=== PATIENT | female | born 1940 | race Caucasian/White ===

== ENCOUNTER → 2016-09-18 | Outpatient (CLI) | payer MEDICARE, BC ==
[~2016-09-18] MED LIST: ADVAIR 500/28 DISKU1 IH; AMBIEN5 M1 PO; BROVANA15 MCG/2 M IH; CLARITIN10 M1 PO; CLONAZEPAM0.25 MG PO; DIOVAN HCT 25 M1 TA1 PO; FISH OIL1 IU PO; GOOD NEIGHBOR325 MG PO; LIPITOR 40MG TA40 MG PO; LOPRESSOR100 M1 PO; MACROBID 100 M100 MG PO; METHYLDOPA500 M1 PO; NITROSTAT0.4 M1 SL; POTASSIUM CHLO10 ME5 PO; PULMICORT0.5 MG/2 M IH; SYNTHROID112 MCG PO
== END ==
LOC: RAD 08:09
DX: Z13.820 Encounter for screening for osteoporosis (principal); M85.80 Other specified disorders of bone density and structure, unspecified site

== ENCOUNTER → 2016-09-18 | Outpatient (CLI) | payer MEDICARE, BC | LOC: MAMMO 08:11 | DX: Z12.31 Encounter for screening mammogram for malignant neoplasm of breast (principal) | CPT/HCPCS: G0202 ==

== ENCOUNTER → 2017-02-21 | Outpatient (CLI) | payer MEDICARE, BC ==
[2016-06-04 20:45] VITALS: BP 176/83
== END ==
LOC: LAB 15:16
DX: R55 Syncope and collapse (principal); E03.9 Hypothyroidism, unspecified

== ENCOUNTER → 2017-02-27 | Outpatient (CLI) | payer MEDICARE, BC ==
[2016-06-04 20:45] VITALS: BP 176/83
== END ==
LOC: RAD 12:00
DX: R55 Syncope and collapse (principal)

== ENCOUNTER 2017-08-26 09:45 | Emergency (ER) | payer MEDICARE, BC ==
[~2017-08-26] VITALS: Wt 56.3 kg
[2017-08-26] MEDS ORDERED: POTASSIUM CHLO10 ME6 PO (09:56)
[2017-08-26 10:24] LABS: HEMATOCRIT 43.4 % (37.0-47.0); HEMOGLOBIN 14.3 g/dL (12.5-16.0); MEAN CELL VOLUME 79 fl (78-100); MEAN CORPUSCULAR HEMOGLOBIN 26 pg (27-31); MEAN CORPUSCULAR HGB CONC 33 g/dL (33-37); MEAN PLATELET VOLUME 9.7 fl (7.4-10.4); PLATELET COUNT 271 K/mm3 (130-400); RED BLOOD COUNT 5.49 M/mm3 (4.10-5.30); RED CELL DISTRIBUTION WIDTH 15.8 % (11.5-14.5); WHITE BLOOD COUNT 14.4 K/mm3 (4.8-10.8)
[2017-08-26 10:37] LABS: ALBUMIN 3.4 g/dL (3.5-5.0); BUN/CREATININE RATIO 26.8 (6.0-26.0); CALCIUM 8.8 mg/dL (8.4-10.2); TOTAL BILIRUBIN 1.3 mg/dL (0.2-1.3); TOTAL PROTEIN 6.2 g/dL (6.3-8.2)
[2017-08-26 10:40] LABS: LYMPHOCYTE 8 % (20-51); MONOCYTE 7 % (3-10); NEUTROPHILS 84 % (42-75); OVALOCYTES 2+
[2017-08-26 10:46] LABS: URINE APPEARANCE HAZY; URINE BILIRUBIN NEGATIVE (NEGATIVE); URINE BLOOD NEGATIVE (NEGATIVE); URINE COLOR YELLOW; URINE GLUCOSE NEGATIVE (NEGATIVE); URINE KETONE NEGATIVE (NEGATIVE); URINE LEUKOCYTE ESTERASE NEGATIVE (NEGATIVE); URINE NITRATE NEGATIVE (NEGATIVE); URINE PROTEIN(semi-quant) TRACE mg/dL (NEGATIVE); URINE UROBILINOGEN 8 mg/dL (NORMAL)
[2017-08-26 10:47] LABS: URINE MUCUS PRESENT (NOT PRESENT)
[2017-08-26 11:18] LABS: D-DIMER 0.38 mg/L FEU (0.15-0.50)
[2017-08-26] MEDS ORDERED: DIOVAN320 MG PO (12:05)
[2017-08-26] MEDS ORDERED: PREDNISONE20 M1 PO (12:05)
[2017-08-26 12:35] VITALS: BP 136/66
== END 2017-08-26 12:08 | disposition home or self-care (01) ==
LOC: ED 09:45
PROVIDERS: Nurse Practitioner
DX: J44.9 Chronic obstructive pulmonary disease, unspecified (principal); E87.1 Hypo-osmolality and hyponatremia; R60.0 Localized edema; I25.10 Atherosclerotic heart disease of native coronary artery without angina pectoris; I10 Essential (primary) hypertension; Z87.891 Personal history of nicotine dependence; Z95.1 Presence of aortocoronary bypass graft; Z79.82 Long term (current) use of aspirin; Z88.5 Allergy status to narcotic agent; Z88.0 Allergy status to penicillin; Z88.8 Allergy status to other drugs, medicaments and biological substances; E03.9 Hypothyroidism, unspecified; I25.2 Old myocardial infarction

== ENCOUNTER → 2017-10-23 | Outpatient (CLI) | payer MEDICARE, BC ==
[~2017-10-23] MED LIST changes: +DIOVAN320 MG PO; +POTASSIUM CHLO10 ME6 PO; +PREDNISONE20 M1 PO
== END ==
LOC: VAS 15:43
DX: I35.1 Nonrheumatic aortic (valve) insufficiency (principal)

== ENCOUNTER 2019-07-23 14:53 | Emergency (ER) | payer MEDICARE, BC ==
[~2019-07-23] VITALS: Ht 160 cm; Wt 60.5 kg
[2019-07-23 15:37] LABS: HEMATOCRIT 41.2 % (37.0-47.0); HEMOGLOBIN 13.8 g/dL (12.5-16.0); MEAN CELL VOLUME 89 fl (78-100); MEAN CORPUSCULAR HEMOGLOBIN 30 pg (27-31); MEAN CORPUSCULAR HGB CONC 34 g/dL (33-37); MEAN PLATELET VOLUME 10.3 fl (7.4-10.4); PLATELET COUNT 139 K/mm3 (130-400); RED BLOOD COUNT 4.64 M/mm3 (4.10-5.30); RED CELL DISTRIBUTION WIDTH 13.2 % (11.5-14.5); WHITE BLOOD COUNT 7.7 K/mm3 (4.8-10.8)
[2019-07-23 15:46] LABS: ALBUMIN 3.9 g/dL (3.4-4.8)
[2019-07-23 15:47] LABS: POTASSIUM 3.9 mmol/L (3.5-5.1)
[2019-07-23 15:49] LABS: TOTAL PROTEIN 6.5 g/dL (6.2-8.1)
[2019-07-23 15:53] LABS: LYMPHOCYTE 6 % (20-51); MONOCYTE 6 % (3-10); NEUTROPHILS 88 % (42-75)
[2019-07-23 16:23] LABS: URINE APPEARANCE CLEAR; URINE COLOR YELLOW
[2019-07-23 16:32] LABS: URINE BILIRUBIN NEGATIVE (NEGATIVE); URINE GLUCOSE NEGATIVE (NEGATIVE); URINE KETONE NEGATIVE (NEGATIVE); URINE PROTEIN(semi-quant) 2+ mg/dL (NEGATIVE); URINE UROBILINOGEN NORMAL (NORMAL)
[2019-07-23 16:33] LABS: URINE BLOOD TRACE (NEGATIVE); URINE LEUKOCYTE ESTERASE TRACE (NEGATIVE); URINE NITRATE NEGATIVE (NEGATIVE); URINE WBC 0-1 /hpf (0-3)
[2019-07-23 16:50] VITALS: BP 179/90
[2019-07-23] MEDS ORDERED: ACETAMINOPHEN500 M5 PO (17:10)
[2019-07-23] MEDS ORDERED: ALBUTEROL2.5 MG/3 M IH (17:11)
[2019-07-23] MEDS ORDERED: CLONAZEPAM0.25 MG PO (17:13)
[2019-07-23] MEDS ORDERED: FUROSEMIDE20 MG PO (17:13)
[2019-07-23] MEDS ORDERED: GOOD NEIGHBOR200 M1 PO (17:15)
[2019-07-23] MEDS ORDERED: LEVOTHYROXINE100 MC1 PO (17:17)
[2019-07-23] MEDS ORDERED: LOSARTAN POTAS100 MG PO (17:19)
[2019-07-23] MEDS ORDERED: CLARITIN10 M1 PO (17:19)
[2019-07-23] MEDS ORDERED: MECLIZINE PO (17:22)
[2019-07-23] MEDS ORDERED: LOPRESSOR 550 MG/TAB PO (17:23)
[2019-07-23] MEDS ORDERED: NITROSTAT0.4 M1 SL (17:25)
[2019-07-23] MEDS ORDERED: OMEGA-31000 M1 PO (17:26)
[2019-07-23] MEDS ORDERED: YUPELRI175 MCG/3 IH (17:27)
[2019-07-23] MEDS ORDERED: DOXYCYCLINE MO100 M3 PO (17:27)
[2019-07-23] MEDS ORDERED: PREDNISONE10 MG PO (17:27)
[2019-07-23] MEDS ORDERED: PROAIR HFA0.09 MG/AC IH (17:28)
[2019-07-23] MEDS ORDERED: ALDACTONE 25MG25 MG PO (17:28)
[2019-07-23] MEDS ORDERED: AMBIEN5 M1 PO (17:30)
[2019-07-23] MEDS ORDERED: OSELTAMIVIR PHO75 MG PO (17:30)
== END 2019-07-23 16:45 | disposition other institution (70) ==
LOC: ED 14:53
PROVIDERS: Internal Medicine; Nurse Practitioner Primary Care
DX: J44.1 Chronic obstructive pulmonary disease with (acute) exacerbation (principal); E86.0 Dehydration; I10 Essential (primary) hypertension; Z79.82 Long term (current) use of aspirin; Z86.19 Personal history of other infectious and parasitic diseases; Z87.01 Personal history of pneumonia (recurrent); Z95.5 Presence of coronary angioplasty implant and graft

== ENCOUNTER 2019-07-26 16:28 | Inpatient (IN) | payer MEDICARE, BC ==
[~2019-07-26] VITALS: Ht 160 cm; Wt 58.5 kg
[~2019-07-26 16:28] MED LIST changes: +ACETAMINOPHEN500 M5 PO; +ALBUTEROL2.5 MG/3 M IH; +ALDACTONE 25MG25 MG PO; +DOXYCYCLINE MO100 M3 PO; +FUROSEMIDE20 MG PO; +GOOD NEIGHBOR200 M1 PO; +LEVOTHYROXINE100 MC1 PO; +LOPRESSOR 550 MG/TAB PO; +LOSARTAN POTAS100 MG PO; +MECLIZINE PO; +OMEGA-31000 M1 PO; +OSELTAMIVIR PHO75 MG PO; +PREDNISONE10 MG PO; +PROAIR HFA0.09 MG/AC IH; +YUPELRI175 MCG/3 IH
[2019-07-26 16:44] VITALS: BP 127/70
[2019-07-26 16:46] VITALS: BP 153/80
[2019-07-26 17:41] LABS: HEMATOCRIT 45.2 % (37.0-47.0); HEMOGLOBIN 14.9 g/dL (12.5-16.0); MEAN CELL VOLUME 91 fl (78-100); MEAN CORPUSCULAR HEMOGLOBIN 30 pg (27-31); MEAN CORPUSCULAR HGB CONC 33 g/dL (33-37); MEAN PLATELET VOLUME 10.5 fl (7.4-10.4); PLATELET COUNT 212 K/mm3 (130-400); RED BLOOD COUNT 4.99 M/mm3 (4.10-5.30); RED CELL DISTRIBUTION WIDTH 13.5 % (11.5-14.5); WHITE BLOOD COUNT 13.4 K/mm3 (4.8-10.8)
[2019-07-26 17:48] LABS: ALBUMIN 3.8 g/dL (3.4-4.8); POTASSIUM 3.9 mmol/L (3.5-5.1)
[2019-07-26 17:49] LABS: CALCIUM 9.2 mg/dL (8.3-10.5)
[2019-07-26 17:50] LABS: TOTAL PROTEIN 6.9 g/dL (6.2-8.1)
[2019-07-26 17:52] LABS: TOTAL BILIRUBIN 0.6 mg/dL (0.2-1.2)
[2019-07-26 18:04] LABS: LYMPHOCYTE 5 % (20-51); MONOCYTE 5 % (3-10); NEUTROPHILS 90 % (42-75)
[2019-07-27 05:38] VITALS: BP 177/91
[2019-07-27 17:58] VITALS: BP 162/77
[2019-07-28 06:02] VITALS: BP 139/89
[2019-07-28 18:00] VITALS: BP 139/83
[2019-07-29 05:53] VITALS: BP 141/86
[2019-07-29 07:08] LABS: POTASSIUM 4.3 mmol/L (3.5-5.1)
[2019-07-29 07:10] LABS: CALCIUM 8.8 mg/dL (8.3-10.5)
[2019-07-29 17:00] VITALS: BP 154/82
[2019-07-29 17:01] VITALS: BP 142/80
[2019-07-30 05:46] VITALS: BP 160/73
[2019-07-30 17:57] VITALS: BP 146/79
[2019-07-31 05:48] VITALS: BP 158/78
[2019-07-31 17:59] VITALS: BP 144/77
[2019-08-01 05:58] VITALS: BP 129/72
[2019-08-01 18:11] VITALS: BP 147/85
[2019-08-02 05:59] VITALS: BP 172/81
[2019-08-02 06:54] LABS: HEMATOCRIT 35.5 % (37.0-47.0); HEMOGLOBIN 11.1 g/dL (12.5-16.0); MEAN CELL VOLUME 95 fl (78-100); MEAN CORPUSCULAR HEMOGLOBIN 30 pg (27-31); MEAN CORPUSCULAR HGB CONC 31 g/dL (33-37); MEAN PLATELET VOLUME 9.8 fl (7.4-10.4); PLATELET COUNT 191 K/mm3 (130-400); RED BLOOD COUNT 3.75 M/mm3 (4.10-5.30); RED CELL DISTRIBUTION WIDTH 13.6 % (11.5-14.5); WHITE BLOOD COUNT 10.5 K/mm3 (4.8-10.8)
[2019-08-02 07:09] LABS: POTASSIUM 4.5 mmol/L (3.5-5.1)
[2019-08-02 07:11] LABS: CALCIUM 8.3 mg/dL (8.3-10.5)
[2019-08-02 07:16] LABS: BAND 1 % (0-10); LYMPHOCYTE 7 % (20-51); MONOCYTE 6 % (3-10); NEUTROPHILS 86 % (42-75)
[2019-08-02 18:47] VITALS: BP 109/70
[2019-08-03 05:55] VITALS: BP 160/87
[2019-08-03 18:20] VITALS: BP 151/77
[2019-08-04 06:03] VITALS: BP 135/68
[2019-08-04 18:35] VITALS: BP 135/65
[2019-08-05 05:54] VITALS: BP 163/88
[2019-08-05 17:50] VITALS: BP 109/72
[2019-08-06 05:44] VITALS: BP 168/85
[2019-08-06 18:07] VITALS: BP 126/73
[2019-08-07 05:33] VITALS: BP 181/91
[2019-08-07 18:04] VITALS: BP 116/74
[2019-08-08 05:44] VITALS: BP 153/79
[2019-08-08 18:15] VITALS: BP 144/79
[2019-08-09 05:47] VITALS: BP 115/58
[2019-08-09 17:07] VITALS: BP 96/64
[2019-08-10 05:45] VITALS: BP 113/62
[2019-08-10 17:04] VITALS: BP 132/83
[2019-08-11 05:40] VITALS: BP 135/79
[2019-08-11 18:13] VITALS: BP 137/79
[2019-08-12 06:21] VITALS: BP 135/72
[2019-08-12 17:11] VITALS: BP 129/64
[2019-08-13 05:42] VITALS: BP 143/84
[2019-08-13 17:11] VITALS: BP 120/76
[2019-08-14 05:26] VITALS: BP 164/73
[2019-08-14 17:24] VITALS: BP 109/66
[2019-08-15 06:21] VITALS: BP 133/76
[2019-08-15 18:00] VITALS: BP 101/68
[2019-08-16 05:55] VITALS: BP 138/80
[2019-08-16 18:04] VITALS: BP 92/61
[2019-08-17 06:15] VITALS: BP 148/76
[2019-08-17 12:03] LABS: EOS # 0.2 (0.04-0.40); EOS % 2.7 % (1.0-5.0); HEMATOCRIT 33.9 % (37.0-47.0); HEMOGLOBIN 10.4 g/dL (12.5-16.0); LYMPH# 0.9 (1.50-4.00); MEAN CELL VOLUME 95 fl (78-100); MEAN CORPUSCULAR HEMOGLOBIN 29 pg (27-31); MEAN CORPUSCULAR HGB CONC 31 g/dL (33-37); MEAN PLATELET VOLUME 9.6 fl (7.4-10.4); MONO # 0.7 (0.20-0.80); NEU # 5.3 (1.40-6.50); PLATELET COUNT 219 K/mm3 (130-400); RED BLOOD COUNT 3.56 M/mm3 (4.10-5.30); RED CELL DISTRIBUTION WIDTH 15.8 % (11.5-14.5); WHITE BLOOD COUNT 7.1 K/mm3 (4.8-10.8)
[2019-08-17 12:05] LABS: ALBUMIN 2.9 g/dL (3.4-4.8)
[2019-08-17 12:06] LABS: POTASSIUM 4.5 mmol/L (3.5-5.1)
[2019-08-17 12:07] LABS: CALCIUM 9.1 mg/dL (8.3-10.5)
[2019-08-17 12:08] LABS: TOTAL PROTEIN 5.9 g/dL (6.2-8.1)
[2019-08-17 12:10] LABS: TOTAL BILIRUBIN 0.8 mg/dL (0.2-1.2)
[2019-08-17 12:14] VITALS: BP 120/64
[2019-08-17 18:07] VITALS: BP 103/65
[2019-08-17 19:56] VITALS: BP 88/57
[2019-08-17 21:23] LABS: HEMATOCRIT 30.1 % (37.0-47.0); HEMOGLOBIN 9.3 g/dL (12.5-16.0); MEAN CELL VOLUME 95 fl (78-100); MEAN CORPUSCULAR HEMOGLOBIN 29 pg (27-31); MEAN CORPUSCULAR HGB CONC 31 g/dL (33-37); MEAN PLATELET VOLUME 9.3 fl (7.4-10.4); PLATELET COUNT 197 K/mm3 (130-400); RED BLOOD COUNT 3.17 M/mm3 (4.10-5.30); RED CELL DISTRIBUTION WIDTH 15.7 % (11.5-14.5); WHITE BLOOD COUNT 5.7 K/mm3 (4.8-10.8)
[2019-08-17 21:35] LABS: POTASSIUM 4.5 mmol/L (3.5-5.1)
[2019-08-17 21:36] LABS: CALCIUM 8.6 mg/dL (8.3-10.5)
[2019-08-17 21:48] LABS: BAND 1 % (0-10); LYMPHOCYTE 8 % (20-51); MONOCYTE 10 % (3-10); NEUTROPHILS 79 % (42-75)
[2019-08-17 21:49] LABS: OVALOCYTES 1+; POLYCHROMASIA 1+
[2019-08-18 05:10] LABS: URINE APPEARANCE HAZY; URINE BILIRUBIN NEGATIVE (NEGATIVE); URINE COLOR YELLOW; URINE GLUCOSE NEGATIVE (NEGATIVE); URINE KETONE NEGATIVE (NEGATIVE); URINE NITRATE NEGATIVE (NEGATIVE); URINE PROTEIN(semi-quant) TRACE mg/dL (NEGATIVE); URINE UROBILINOGEN NORMAL (NORMAL)
[2019-08-18 05:11] LABS: URINE BLOOD TRACE (NEGATIVE); URINE LEUKOCYTE ESTERASE TRACE (NEGATIVE)
[2019-08-18 05:24] VITALS: BP 125/75
[2019-08-18 08:32] LABS: ALBUMIN 2.7 g/dL (3.4-4.8)
[2019-08-18 08:33] LABS: POTASSIUM 4.4 mmol/L (3.5-5.1)
[2019-08-18 08:34] LABS: CALCIUM 8.9 mg/dL (8.3-10.5); SODIUM 132 mmol/L (136-145)
[2019-08-18 08:35] LABS: GLUCOSE 112 mg/dL (65-105); TOTAL PROTEIN 5.7 g/dL (6.2-8.1)
[2019-08-18 08:38] LABS: CARBON DIOXIDE 27 mmol/L (23-31)
[2019-08-18 08:39] LABS: TOTAL BILIRUBIN 0.4 mg/dL (0.2-1.2)
[2019-08-18 08:40] LABS: AST-SGOT 15 U/L (5-34)
[2019-08-18 08:41] LABS: ALT/SGPT 26 U/L (0-55)
[2019-08-18 09:28] LABS: EOS # 0.1 (0.04-0.40); EOS % 2.2 % (1.0-5.0); HEMATOCRIT 36.9 % (37.0-47.0); HEMOGLOBIN 11.8 g/dL (12.5-16.0); LYMPH# 0.5 (1.50-4.00); MEAN CELL VOLUME 93 fl (78-100); MEAN CORPUSCULAR HEMOGLOBIN 30 pg (27-31); MEAN CORPUSCULAR HGB CONC 32 g/dL (33-37); MEAN PLATELET VOLUME 9.8 fl (7.4-10.4); MONO # 0.3 (0.20-0.80); NEU # 2.6 (1.40-6.50); PLATELET COUNT 171 K/mm3 (130-400); RED BLOOD COUNT 3.95 M/mm3 (4.10-5.30); RED CELL DISTRIBUTION WIDTH 15.8 % (11.5-14.5); TROPONIN-I < 0.03 ng/mL (<0.030); WHITE BLOOD COUNT 3.6 K/mm3 (4.8-10.8)
[2019-08-18 09:31] VITALS: BP 133/82
[2019-08-18 10:51] VITALS: BP 110/74
[2019-08-18 14:30] VITALS: BP 98/62
[2019-08-18 17:04] VITALS: BP 127/77
[2019-08-19 05:46] VITALS: BP 155/86
[2019-08-19 18:02] VITALS: BP 144/75
[2019-08-20 06:02] VITALS: BP 136/71
[2019-08-20 17:27] VITALS: BP 110/70
[2019-08-21 05:41] VITALS: BP 131/79
[2019-08-21 17:49] VITALS: BP 124/80
[2019-08-22 06:03] VITALS: BP 139/81
[2019-08-22 08:18] LABS: EOS # 0.1 (0.04-0.40); HEMATOCRIT 34.1 % (37.0-47.0); HEMOGLOBIN 10.5 g/dL (12.5-16.0); MEAN CELL VOLUME 94 fl (78-100); MEAN CORPUSCULAR HEMOGLOBIN 29 pg (27-31); MEAN CORPUSCULAR HGB CONC 31 g/dL (33-37); MEAN PLATELET VOLUME 8.5 fl (7.4-10.4); MONO # 0.5 (0.20-0.80); NEU # 4.4 (1.40-6.50); PLATELET COUNT 238 K/mm3 (130-400); RED BLOOD COUNT 3.62 M/mm3 (4.10-5.30); RED CELL DISTRIBUTION WIDTH 15.6 % (11.5-14.5); WHITE BLOOD COUNT 6.1 K/mm3 (4.8-10.8)
[2019-08-22 08:27] LABS: POTASSIUM 4.4 mmol/L (3.5-5.1)
[2019-08-22 08:28] LABS: CALCIUM 8.8 mg/dL (8.3-10.5)
[2019-08-22 09:05] LABS: LYMPH# 0.7 (1.50-4.00)
[2019-08-22 11:15] VITALS: BP 104/69
[2019-08-22 16:50] VITALS: BP 121/79
[2019-08-23] VITALS (8 sets, daily range): BP systolic 87–151; BP diastolic 50–77
[2019-08-23 09:56] LABS: D-DIMER 0.68 mg/L FEU (0.15-0.50)
[2019-08-24 06:37] VITALS: BP 89/61
[2019-08-24 08:25] VITALS: BP 130/83
[2019-08-24 13:51] VITALS: BP 110/74
[2019-08-24 18:33] VITALS: BP 106/70
[2019-08-25 06:15] VITALS: BP 112/71
[2019-08-25 09:00] VITALS: BP 126/73
[2019-08-25 11:30] VITALS: BP 126/73
== END 2019-08-25 11:30 | disposition short-term general hospital (02) | DRG 947 ==
LOC: MED/SURG 16:28
PROVIDERS: Family Medicine; Nurse Practitioner; Nurse Practitioner Family; Physician Assistant; ADMIT Nurse Practitioner Primary Care
DX: R53.81 Other malaise (principal); J18.9 Pneumonia, unspecified organism; J44.1 Chronic obstructive pulmonary disease with (acute) exacerbation; E87.1 Hypo-osmolality and hyponatremia; I25.10 Atherosclerotic heart disease of native coronary artery without angina pectoris; E03.9 Hypothyroidism, unspecified; I95.9 Hypotension, unspecified; I48.91 Unspecified atrial fibrillation; I11.0 Hypertensive heart disease with heart failure; I50.9 Heart failure, unspecified; K59.00 Constipation, unspecified; E78.5 Hyperlipidemia, unspecified; Z79.82 Long term (current) use of aspirin; Z99.81 Dependence on supplemental oxygen; Z88.0 Allergy status to penicillin; Z88.6 Allergy status to analgesic agent; Z87.891 Personal history of nicotine dependence; Z95.1 Presence of aortocoronary bypass graft
CPT/HCPCS: A4618; J0456; J1650; J1940; J2930; J7030; J7050; J7512; Q9967